=== PATIENT | female | born 1975 | race Caucasian/White ===

== ENCOUNTER 2024-05-11 16:39 | Emergency (ER) | payer BC, SELFPAY ==
--- NOTE | ~2024-05-11 | XR_ITS ---
EXAMINATION: XR tibia fibula LT 2V DATE: 05/11/2024 17:46 INDICATION: Left lower leg anterior pain. TECHNIQUE: 2 views of left tibia and fibula on 3 radiographs were obtained. COMPARISON: None. FINDINGS: Alignment is normal. No fracture. Joint spaces are normal. IMPRESSION: 1. No fracture. Reviewed, dictated and finalized at location A[facility] IMPRESSION: 1. No fracture.
[2024-05-11 16:54] VITALS: BP 125/76; PULSE 74; RESP 16; TEMP 36.4; O2SAT 100
--- NOTE | 2024-05-11 17:35 | ED.LOWEXIN ---
HPI - Extremity Injury (Lower) General Chief Complaint: Extremity Injury, Lower Stated Complaint: Injured Left Ankle Time Seen by Provider: 05/11/24 17:26 Source: patient and RN notes reviewed Mode of arrival: ambulatory Limitations: no limitations History of Present Illness HPI Narrative: Patient presents today complaining a sudden onset sharp pain in the left anterior lower leg area 1 week ago. Denies any injury or trauma. Pain started when she was walking. At onset, pain was only with motion and weight-bearing, but now she is having pain at rest as well. She currently rates her pain 6/10 at rest, but increases to 10/10 with weight-bearing. She has tried ibuprofen, which helps with swelling, but not with pain. Related Data Allergies Allergy/AdvReac Type Severity Reaction Status Date / Time No Known Allergies Allergy Verified 05/11/24 17:00 Review of Systems Review of Systems: CONSTITUTIONAL: Denies body aches, fever, chills, or sweats. EYES: Denies visual changes, redness, or discharge. ENT: Denies rhinorrhea, congestion, sore throat, or otalgia. CARDIOVASCULAR: Denies chest pain, palpitations, or edema. RESPIRATORY: Denies cough or dyspnea. GASTROINTESTINAL: Denies abdominal pain, nausea, vomiting, or diarrhea. GENITOURINARY: Denies dysuria or hematuria. SKIN: Denies rash, itching, or wounds. MUSCULOSKELETAL: + left lower leg pain NEUROLOGIC: Denies headache, numbness, tingling, or weakness. PSYCH: Denies depression or anxiety. PMFSH Comments At time of signature, I have reviewed and agree with nursing past medical, surgical, social and family history unless otherwise noted. Please see nursing chart for further information. There is no relevant family history pertinent to the presenting complaint Exam Narrative: GENERAL: Well-appearing, well-nourished, and in no acute distress. HEAD: Normocephalic, atraumatic. EYES: EOMI. No redness or drainage. Conjunctivae normal. ENT: Mucous membranes pink and moist. NECK: Normal AROM. CHEST: No respiratory distress. EXTREMITIES: Left lower leg: Tenderness to the mead with palpation. No obvious ecchymosis, erythema, swelling. Distal sensation intact. Capillary refill normal. Pedal pulse normal. Pain increases significantly with flexion and extension of the ankle. SKIN: Warm, dry, no rash. Capillary refill normal. Normal skin turgor. NEURO: No focal deficits. Alert and oriented x3. Gait steady. PSYCH: Normal affect. No signs of depression or anxiety. Course Course Level of Care: Express Care Visit Vital Signs Vital signs: Vital Signs Temperature 97.6 F 05/11/24 16:54 Pulse Rate 74 05/11/24 16:54 Respiratory Rate 16 05/11/24 16:54 Blood Pressure 125/76 05/11/24 16:54 Pulse Oximetry 100 05/11/24 16:54 Temperature 97.6 F 05/11/24 16:54 Pulse Rate 74 05/11/24 16:54 Respiratory Rate 16 05/11/24 16:54 Blood Pressure 125/76 05/11/24 16:54 Pulse Oximetry 100 05/11/24 16:54 Reviewed MDM - Extremity Injury (Lower) MDM Narrative Medical decision making narrative: X-ray is negative. Discussed with patient that short course of steroids may be helpful for her as she may have a bit of tendinitis. Patient declines. Would like an Sammy wrap. Recommend orthopedic or PCP follow-up for further evaluation. Anticipatory guidance given Differential Diagnosis Differential diagnosis: Likely ankle sprain and strain and other (Mead splints, tendinitis) Imaging Data Radiologist's impression: ITS Impressions Tibia/Fibula X-Ray 05/11/24 17:55 IMPRESSION: 1. No fracture. Critical Care Time Critical Care Time Critical Care Time: No Discharge Plan Discharge Clinical Impression: Acute pain of left lower extremity Patient Disposition: Home, Self-Care Condition: Stable Additional Instructions: Your x-ray is negative today. Continue ibuprofen or Tylenol for pain. Apply ice to help with inflammation. Follow-up with your PCP or orthopedic physician for further evaluation and treatment. If you need help finding a PCP, please call the [facility] physician liaison line [phone]. Your blood pressure was elevated above 120/80 today at Urgent Care. This puts you above the threshold for follow up. Please schedule a followup visit with your personal physician as soon as possible, for further evaluation and treatment. Even blood pressure exceeding 120/80 may indicate pre-hypertension. 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
== END 2024-05-11 18:22 | disposition home or self-care (01) ==
PROVIDERS: Emergency Provider Nurse Practitioner
DX: M79.662 Pain in left lower leg (principal)
CPT/HCPCS: 73590; 99213; G0463